=== PATIENT | female | born 1945 | race Caucasian/White ===

== ENCOUNTER → 2017-04-22 | Outpatient (CLI) | payer MEDICARE, OTHER ==
[2017-04-22 11:03] LABS: HEMOGLOBIN 11.8 gm/dl (12.3-15.3); RED BLOOD COUNT 3.99 M/UL (4.00-5.10); WHITE BLOOD COUNT 8.6 K/UL (4.5-11.0)
== END ==
LOC: LAB 09:11
PROVIDERS: Internal Medicine Nephrology
DX: I10 Essential (primary) hypertension (principal); E78.5 Hyperlipidemia, unspecified; E03.9 Hypothyroidism, unspecified; E11.9 Type 2 diabetes mellitus without complications
CPT/HCPCS: 36415; 80053; 80061; 82043; 82570; 84443; 85007; 85027

== ENCOUNTER → 2017-05-09 | Outpatient (CLI) | payer MEDICARE, OTHER | LOC: US 10:43 | DX: N18.3 Chronic kidney disease, stage 3 (moderate) (principal); N32.81 Overactive bladder; Z53.9 Procedure and treatment not carried out, unspecified reason ==

== ENCOUNTER → 2021-02-12 | Outpatient (CLI) | payer OTHER ==
[~2021-02-12] MED LIST: AMARYL4 MG PO; ASPIRIN 325MG325 MG PO; CALTRATE 600+D1 EAC1 PO; CEFUROXIME500 MG PO; COLACE 100MG C100 MG PO; DITROPAN XL5 MG PO; ELAVIL 10 MG TA10 MG PO; FEOSOL325 MG PO; FLOVENT 44 MCG7.9 GM INH; FOLIC ACID0.4 MG PO; HUMALOG100 UNIT/3 SQ; JARDIANCE10 MG PO; LANTUS100 UNIT/1 SQ; LASIX20 MG PO; LIPITOR TAB 2020 MG PO; LIPITOR20 MG PO; NIACIN ER500 MG PO; PRINIVIL20 MG PO; PROZAC40 MG PO; THERAGRAN M TAB1 EA PO; TIROSINT50 MCG PO; TOPROL XL25 MG PO; TYLENOL 8 HOUR650 MG PO; ZANTAC150 MG PO
[2021-02-13 11:14] LABS: CREATININE, URINE <4.2 mg/dL (Not Estab.)
== END ==
LOC: LAB 10:39
PROVIDERS: Internal Medicine Nephrology
DX: N18.9 Chronic kidney disease, unspecified (principal)
CPT/HCPCS: 36415; 76775; 80053; 81001; 82043; 82570; 84156

== ENCOUNTER → 2021-03-10 | Outpatient (CLI) | payer MEDICARE, OTHER | LOC: HEART 5 07:46 | DX: I25.119 Atherosclerotic heart disease of native coronary artery with unspecified angina pectoris (principal); I48.91 Unspecified atrial fibrillation | CPT/HCPCS: 78452; A9502; J2785 ==

== ENCOUNTER 2021-03-11 19:23 | Emergency (ER) | payer MEDICARE, OTHER ==
[~2021-03-11 19:23] MED LIST changes: -CEFUROXIME500 MG PO
[2021-03-11 20:10] LABS: HEMOGLOBIN 12.1 gm/dl (12.3-15.3); RED BLOOD COUNT 4.08 M/UL (4.00-5.10); WHITE BLOOD COUNT 7.4 K/UL (4.5-11.0)
[2021-03-11] MEDS ORDERED: CEFUROXIME500 MG PO (21:01)
== END 2021-03-11 22:20 | disposition home or self-care (01) ==
LOC: ER1 19:23
PROVIDERS: Physician Assistant
DX: E11.649 Type 2 diabetes mellitus with hypoglycemia without coma (principal); E78.5 Hyperlipidemia, unspecified; N39.0 Urinary tract infection, site not specified; E87.6 Hypokalemia; I12.9 Hypertensive chronic kidney disease with stage 1 through stage 4 chronic kidney disease, or unspecified chronic kidney disease; N18.9 Chronic kidney disease, unspecified; Z90.710 Acquired absence of both cervix and uterus; Z90.49 Acquired absence of other specified parts of digestive tract; Z87.442 Personal history of urinary calculi; Z88.0 Allergy status to penicillin
CPT/HCPCS: 71045; 80053; 81001; 82962; 85025; 99285

== ENCOUNTER → 2021-07-15 | Outpatient (CLI) | payer MEDICARE, OTHER ==
[~2021-07-15] MED LIST changes: +CEFUROXIME500 MG PO
[2021-07-16 11:14] LABS: CREATININE, URINE 141.4 mg/dL (Not Estab.)
== END ==
LOC: LAB 07:51
PROVIDERS: Internal Medicine Nephrology
DX: N18.9 Chronic kidney disease, unspecified (principal)
CPT/HCPCS: 36415; 80053; 81001; 82043; 82570; 84156

== ENCOUNTER → 2021-11-12 | Outpatient (CLI) | payer MEDICARE, OTHER | LOC: LAB 08:32 | PROVIDERS: Internal Medicine Nephrology | DX: N18.9 Chronic kidney disease, unspecified (principal) | CPT/HCPCS: 36415; 80053; 81001; 82570; 84156 ==

== ENCOUNTER 2021-12-11 09:01 | Emergency (ER) | payer MEDICARE, OTHER ==
[2021-12-11 10:39] LABS: HEMOGLOBIN 9.9 gm/dl (12.3-15.3); RED BLOOD COUNT 3.38 M/UL (4.00-5.10); WHITE BLOOD COUNT 11.4 K/UL (4.5-11.0)
[2021-12-11] MEDS ORDERED: PERCOCET 5-3251 EACH PO (12:58)
[2021-12-11] MEDS ORDERED: ZOFRAN ODT 4 MG4 MG PO (12:58)
[2021-12-11] MEDS ORDERED: OMNICEF 300 MG300 MG PO (12:58)
== END 2021-12-11 13:16 | disposition home or self-care (01) ==
LOC: ER1 09:01
PROVIDERS: Nurse Practitioner
DX: S72.141A Displaced intertrochanteric fracture of right femur, initial encounter for closed fracture (principal); M97.01XA Periprosthetic fracture around internal prosthetic right hip joint, initial encounter; E11.65 Type 2 diabetes mellitus with hyperglycemia; E11.22 Type 2 diabetes mellitus with diabetic chronic kidney disease; N39.0 Urinary tract infection, site not specified; I12.9 Hypertensive chronic kidney disease with stage 1 through stage 4 chronic kidney disease, or unspecified chronic kidney disease; N18.9 Chronic kidney disease, unspecified; E78.00 Pure hypercholesterolemia, unspecified; W19.XXXA Unspecified fall, initial encounter; Y92.009 Unspecified place in unspecified non-institutional (private) residence as the place of occurrence of the external cause
CPT/HCPCS: 71045; 72131; 73522; 73552; 73562; 80048; 81001; 85025; 85610; 85730; 87077; 87086; 87186; 99284

== ENCOUNTER → 2022-01-18 | Outpatient (CLI) | payer MEDICARE, OTHER ==
[~2022-01-18] MED LIST changes: +OMNICEF 300 MG300 MG PO; +PERCOCET 5-3251 EACH PO; +ZOFRAN ODT 4 MG4 MG PO
== END ==
LOC: EXRD 10:48
DX: S72.009A Fracture of unspecified part of neck of unspecified femur, initial encounter for closed fracture (principal); Z78.0 Asymptomatic menopausal state
CPT/HCPCS: 77080

== ENCOUNTER → 2022-03-11 | Outpatient (CLI) | payer MEDICARE, OTHER ==
[2022-03-12 11:16] LABS: CREATININE, URINE 149.2 mg/dL (Not Estab.)
== END ==
LOC: LAB 09:13
PROVIDERS: Internal Medicine Nephrology
DX: N18.9 Chronic kidney disease, unspecified (principal)
CPT/HCPCS: 81001; 82043; 82570; 84156

== ENCOUNTER → 2022-07-15 | Outpatient (CLI) | payer MEDICARE, OTHER ==
[2022-07-16 10:15] LABS: CREATININE, URINE 110.5 mg/dL (Not Estab.)
== END ==
LOC: LAB 12:12
PROVIDERS: Internal Medicine Nephrology
DX: N18.9 Chronic kidney disease, unspecified (principal)
CPT/HCPCS: 36415; 80053; 81001; 82043; 82570; 84156

== ENCOUNTER → 2022-07-22 | Outpatient (CLI) | payer MEDICARE, OTHER | LOC: LAB 12:35 | PROVIDERS: Internal Medicine Nephrology | DX: N18.9 Chronic kidney disease, unspecified (principal) | CPT/HCPCS: 36415; 80048 ==

== ENCOUNTER → 2022-08-26 | Outpatient (CLI) | payer MEDICARE, OTHER ==
[2022-08-27 11:13] LABS: CREATININE, URINE 123.6 mg/dL (Not Estab.)
== END ==
LOC: LAB 08:19
PROVIDERS: Internal Medicine Nephrology
DX: N18.9 Chronic kidney disease, unspecified (principal)
CPT/HCPCS: 36415; 80053; 81001; 82043; 82570; 84156